=== PATIENT | male | born 2000 | race African-American/Black ===

== ENCOUNTER 2020-05-12 12:32 | Emergency (ER) | payer OTHER ==
[~2020-05-12] VITALS: Ht 167.6 cm; Wt 65.0 kg
[2020-05-12] MEDS ORDERED: LevETIRAcetam 1,000 MG in DEXTROSE 5%-WATER 100 ML IV ONE (14:15)
[2020-05-12 14:45] VITALS: BP 94/57
== END 2020-05-12 14:55 | disposition home or self-care (01) ==
LOC: EDBD 12:34 → EMS 12:34
DX: G40.909 Epilepsy, unspecified, not intractable, without status epilepticus (principal)
CPT/HCPCS: 96365; 99284; J0712; J7060

== ENCOUNTER 2021-12-10 21:32 | Emergency (ER) | payer MEDICAID, OTHER ==
[~2021-12-10] VITALS: Ht 170.2 cm; Wt 68.0 kg
[2021-12-10] MEDS ORDERED: HYDROCODONE/ACETAMINOPHEN 5-325 MG TABLET PO ONE (22:15)
[2021-12-10] MEDS ORDERED: AMOX1TAB16 PO (22:27)
[2021-12-10] MEDS ORDERED: HYDR-4723 PO (22:28)
[2021-12-10] MEDS ORDERED: IBUP-2070 PO (22:29)
[2021-12-10] MEDS ORDERED: PERTUSS(ACELL),DIPH,TET VAC/PF 0.5 ML SYRINGE IM. ONE (22:30)
[2021-12-10] MEDS ORDERED: AMOX TR/POT CLAV 875 MG/125 MG TABLET PO ONE (22:30)
[2021-12-10 23:08] VITALS: BP 112/63
== END 2021-12-10 23:09 | disposition home or self-care (01) ==
LOC: EMS 21:38
DX: S62.326A Displaced fracture of shaft of fifth metacarpal bone, right hand, initial encounter for closed fracture (principal); X58.XXXA Exposure to other specified factors, initial encounter; Y93.89 Activity, other specified; Y92.89 Other specified places as the place of occurrence of the external cause; Y99.8 Other external cause status
CPT/HCPCS: 90471; 90715; 99283